=== PATIENT | male | born 1995 | race African-American/Black ===

== ENCOUNTER 2020-11-28 23:51 | Observation (INO) ==
[2020-11-29 00:38] LABS: Basophils # 0.1 K/mcL (0.0-0.2); Basophils % 0.6 %; Eosinophils # 0.1 K/mcL (0.0-0.6); Eosinophils % 0.5 %; Hematocrit 39.2 % (37.5-50.1); Hemoglobin 13.6 g/dL (12.9-16.9); Immature Granulocytes % 0.6 % (0-4); Immature Platelets 6.5 % (1.1-6.1); Lymphocytes # 3.5 K/mcL (0.6-4.6); Lymphocytes % 34.7 %; Mean Corpuscular HGB Conc 34.7 g/dL (31.6-35.5); Mean Corpuscular Hemoglobin 23.1 pg (28.0-33.3); Mean Corpuscular Volume 66.6 fL (83.0-100.0); Monocytes # 0.7 K/mcL (0.0-1.3); Monocytes % 7.3 %; Neutrophils # 5.6 K/mcL (1.6-8.9); Nucleated Red Blood Cells 1.9 /100 WBC (0); Platelet Count 172 K/mcL (140-400); Red Blood Count 5.89 M/mcL (4.19-5.50); Red Cell Distribution Width 17.9 % (11.5-14.5); Segmented Neutrophils % 56.3 %
[2020-11-29 00:40] LABS: Amphetamine Screen,Urine Negative ng/mL (Cutoff=1000); Barbiturate Screen,Urine Negative ng/mL (Cutoff=200); Benzodiazepines Screen,Urine Negative ng/mL (Cutoff=200); Cannabinoid Screen,Urine Positive ng/mL (Cutoff = 50); Cocaine Screen,Urine Negative ng/mL (Cutoff= 300); Opiate Screen,Urine Negative ng/mL (Cutoff=300); Phencyclidine Screen,Urine Negative ng/mL (Cutoff=25)
[2020-11-29 00:45] LABS: Bacteria,Urine Moderate per hpf (None-Few); Bilirubin,Urine Negative (Negative); Blood,Urine Negative (Negative); Clarity,Urine Turbid (Clear); Color,Urine Yellow (Yellow); Glucose,Urine (UA) Normal (Normal); Ketones,Urine Negative (Negative); Leukocyte Esterase,Urine Large (Negative); Mucus,Urine Moderate per lpf (None-Few); Nitrite,Urine Negative (Negative); Protein,Urine 50 mg/dL (Neg-Trace); Specific Gravity,Urine > 1.030 (1.010-1.025); Sperm,Urine Present (None Seen); Urobilinogen,Urine >=8.0 mg/dL (Normal); WBC,Urine TNTC per hpf (0-3)
[2020-11-29 00:47] LABS: Acetaminophen < 10 mcg/mL (10-20); BUN/Creatinine Ratio 19 (6-26); Blood Urea Nitrogen 17 mg/dL (6-20); Calcium 9.8 mg/dL (8.6-10.3); Carbon Dioxide 25 mEq/L (23-29); Chloride 104 mEq/L (98-107); Chol/HDL Ratio 2.9 (0-4.9); Cholesterol 81 mg/dL (< 200); Ethanol < 10 mg/dL (Less than 10); Glucose 93 mg/dL (70-105); HDL Cholesterol 28 mg/dL (40-59); LDL Cholesterol,Calculated 42 mg/dL (< 100); Osmolality,Calculated 287 (280-300); Potassium 3.4 mEq/L (3.5-5.1); Salicylate < 2.5 mg/dL (15.0-30.0); Sodium 138 mEq/L (136-145); Triglycerides 55 mg/dL (< 150); eGFR For African Americans > 60 (> 60); eGFR For Non-African Americans > 60 (> 60)
[2020-11-29 01:05] LABS: Anisocytosis 1+ (Not Present); Microcytosis Present (Not Present); Platelet Estimate Normal (Normal); Target Cells 1+ (Not Present)
[2020-11-29] MEDS ORDERED: Ondansetron 4 MG/2 ML VIAL IVP PRN (03:00)
[2020-11-29] MEDS ORDERED: Naloxone 0.4 MG/ML INJ IVP PRN (03:00)
[2020-11-29] MEDS: Potassium Chloride Elixir 20 MEQ/15 ML UDC PO SCH ×2 (10:33→12:48)
[2020-11-29] MEDS ORDERED: FLUoxetine HCl Oral Soln 20 MG/5 ML UDC PO SCH (15:00)
[2020-11-30 06:13] LABS: Basophils % 0.9 %; Eosinophils % 1.3 %; Monocytes % 7.1 %; Nucleated Red Blood Cells 2.5 /100 WBC (0)
[2020-11-30 06:15] LABS: Basophils # 0.1 K/mcL (0.0-0.2); Eosinophils # 0.1 K/mcL (0.0-0.6); Hematocrit 37.9 % (37.5-50.1); Hemoglobin 13.1 g/dL (12.9-16.9); Immature Granulocytes % 0.7 % (0-4); Lymphocytes # 3.1 K/mcL (0.6-4.6); Lymphocytes % 41.1 %; Mean Corpuscular HGB Conc 34.6 g/dL (31.6-35.5); Mean Corpuscular Volume 66.6 fL (83.0-100.0); Monocytes # 0.5 K/mcL (0.0-1.3); Neutrophils # 3.7 K/mcL (1.6-8.9); Platelet Count 171 K/mcL (140-400); Red Blood Count 5.69 M/mcL (4.19-5.50); Red Cell Distribution Width 17.5 % (11.5-14.5); Segmented Neutrophils % 48.9 %; White Blood Count 7.6 K/mcL (4.3-11.1)
[2020-11-30 06:33] LABS: BUN/Creatinine Ratio 19 (6-26); Blood Urea Nitrogen 18 mg/dL (6-20); Calcium 9.9 mg/dL (8.6-10.3); Carbon Dioxide 26 mEq/L (23-29); Chloride 103 mEq/L (98-107); Glucose 88 mg/dL (70-105); Magnesium 2.2 mg/dL (1.6-2.6); Osmolality,Calculated 285 (280-300); Phosphorous 3.5 mg/dL (2.7-4.5); Potassium 3.6 mEq/L (3.5-5.1); Sodium 137 mEq/L (136-145); eGFR For African Americans > 60 (> 60); eGFR For Non-African Americans > 60 (> 60)
[2020-11-30 06:53] LABS: Large Platelets Present (Not Present); Platelet Estimate Normal (Normal)
[2020-11-30 06:55] LABS: Anisocytosis 1+ (Not Present); Microcytosis Present (Not Present)
[2020-11-30 11:05] VITALS: BP 112/60
== END 2020-11-30 12:16 ==
LOC: 3BNU 23:51 → EMEROOARM 23:51 → 3BNU 11-29 03:50
PROVIDERS: ADMIT Student in an Organized Health Care Education/Training Program; ATTEND Student in an Organized Health Care Education/Training Program